=== PATIENT | female | born 1950 | race Caucasian/White ===

== ENCOUNTER → 2017-10-31 | Outpatient (CLI) | payer OTHER | END | disposition home or self-care (01) | LOC: CFH 10:45 | PROVIDERS: ATTEND Family Medicine | DX: S06.9X9A Unspecified intracranial injury with loss of consciousness of unspecified duration, initial encounter (principal); S49.90XA Unspecified injury of shoulder and upper arm, unspecified arm, initial encounter; R22.32 Localized swelling, mass and lump, left upper limb; W18.30XA Fall on same level, unspecified, initial encounter | CPT/HCPCS: 70450 ==

== ENCOUNTER 2017-12-20 18:50 | Emergency (ER) | payer OTHER ==
[~2017-12-20] VITALS: Ht 172.7 cm; Wt 81.1 kg
[2017-12-20] MEDS ORDERED: LEVO75TA PO (19:37)
[2017-12-20 19:48] VITALS: BP 169/74
== END 2017-12-20 20:34 | disposition home or self-care (01) ==
LOC: ED 20:15
DX: S09.90XA Unspecified injury of head, initial encounter (principal); I10 Essential (primary) hypertension; W01.0XXA Fall on same level from slipping, tripping and stumbling without subsequent striking against object, initial encounter; E03.9 Hypothyroidism, unspecified; Y93.89 Activity, other specified; Y99.8 Other external cause status; Y92.009 Unspecified place in unspecified non-institutional (private) residence as the place of occurrence of the external cause
CPT/HCPCS: 70450; 72125; 72220; 99284

== ENCOUNTER 2018-06-08 20:57 | Emergency (ER) | payer OTHER ==
[~2018-06-08] VITALS: Ht 172.7 cm; Wt 81.1 kg
[~2018-06-08 20:57] MED LIST: LEVO75TA PO
[2018-06-08 20:58] VITALS: BP 173/97
[2018-06-08] MEDS ORDERED: ACETAMINOPHEN 500 MG TABLET PO ONE (21:30)
[2018-06-08] MEDS ORDERED: LIDOCAINE 1%-EPI 1:100K, 20ML INFIL ONE (21:30)
[2018-06-08] MEDS ORDERED: ACETAMINOPHEN 500 MG TABLET ONE (21:43)
[2018-06-08] MEDS ORDERED: LIDOCAINE-MPF 1%, 5ML ONE (22:17)
== END 2018-06-08 23:01 | disposition home or self-care (01) ==
LOC: ED 22:36
DX: S01.01XA Laceration without foreign body of scalp, initial encounter (principal); S06.0X0A Concussion without loss of consciousness, initial encounter; I10 Essential (primary) hypertension; E03.9 Hypothyroidism, unspecified; X58.XXXA Exposure to other specified factors, initial encounter; Y93.89 Activity, other specified; Y92.89 Other specified places as the place of occurrence of the external cause; Y99.8 Other external cause status
CPT/HCPCS: 12034; 70450; 72125; 99284